=== PATIENT | male | born 1950 | race African-American/Black ===

== ENCOUNTER 2019-01-27 05:10 | Inpatient (IN) | payer OTHER ==
[2019-01-18 13:07] LABS: HEMATOCRIT 41.8 % (42.0-52.0); HEMOGLOBIN 14.2 gm/dL (14.0-18.0); MCH 28.9 pg (26.0-34.0); MCV 85.1 fL (80.0-100.0); RBC 4.91 mil/uL (4.50-6.00); WBC 7.6 thou/uL (4.0-11.0)
[2019-01-18 13:15] LABS: URINE BILIRUBIN NEGATIVE (Negative); URINE BLOOD NEGATIVE (Negative); URINE CLARITY CLEAR; URINE COLOR YELLOW; URINE GLUCOSE-RANDOM* NEGATIVE (Negative); URINE KETONES NEGATIVE (Negative); URINE LEUKOCYTES-REFLEX NEGATIVE (Negative); URINE NITRITE-REFLEX NEGATIVE (Negative); URINE PROTEIN (DIPSTICK) NEGATIVE (Negative); URINE SPECIFIC GRAVITY 1.015 (1.005-1.035); URINE UROBILINOGEN 0.2 E.U./dl (0.2-1.0)
[2019-01-18 13:19] LABS: ALBUMIN 4.1 g/dL (3.4-5.0); CALCIUM 9.3 mg/dL (8.5-10.1); CREATININE 1.4 mg/dL (0.7-1.3); POTASSIUM 4.4 mmol/L (3.5-5.1)
[2019-01-18 13:20] LABS: PROTIME 10.9 Seconds (9.3-11.4)
--- NOTE | 2019-01-19 17:00 | EKG ---
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: [facility] : 1950 Requested By: Luis Loredo Order Number: [id number] MD: Joss Stewart Measurements Intervals [place] Rate: 64 P: 18 TX: 201 QRS: -15 QRSD: 85 T: 21 QT: 391 QTc: 404 Interpretive Statements Sinus rhythm Left ventricular hypertrophy No previous ECG available for comparison Electronically Signed On 01-19-2019 17:00:03 CDT by Joss Stewart [email or web address] ��������������������������������������������� <ELECTRONICALLY SIGNED> ���������������������������������������� By: Joss Stewart MD, MERGED WITH [facility] ��������������������������������������������� 01/19/19 1700 [id number] Joss Stewart MD, FACC /EPI
[~2019-01-27] VITALS: Ht 167.6 cm; Wt 87.1 kg
--- NOTE | ~2019-01-27 | O ---
[facility] [place] [address] OPERATIVE REPORT Name: AQUILINO HOOK Room #: 426-P ADM IN M.R.#: [id number] Admission: 01/27/19 ������������������ Attend Phys: Luis Loredo MD Discharge: ������������������ Date of : 50 Report #: [id number] THIS REPORT FOR: //name// CC: Rahul Loredo DATE OF SERVICE: 01/27/2019 PREOPERATIVE DIAGNOSIS: Right knee osteoarthritis. POSTOPERATIVE DIAGNOSIS: Right knee osteoarthritis. PROCEDURE: Right total knee arthroplasty using Navio robotic assistance. SURGEON: Luis Loredo MD. PHARMACEUTICAL ENGINEER: Elaine Rogers PA-C INDICATION FOR PHARMACEUTICAL ENGINEER: Throughout the case, extensive retraction and manipulation of the knee was required. This was afforded to me by my shipping and receiving assistant. ANESTHESIA: LMA with an adductor canal block. TOURNIQUET TIME: 60 minutes. ESTIMATED BLOOD LOSS: 25 mL. IMPLANTS: [employer] size 6 Legion cobalt chrome posterior stabilized femur, size 5 tibia, size 10 polyethylene and size 32 patella. CONDITION UPON LEAVING THE OPERATING ROOM: Stable. INDICATIONS FOR PROCEDURE: The patient is a 68-year-old gentleman with severe right knee osteoarthritis. He had failed conservative measures for this and after discussion with him, he elected for right total knee arthroplasty. DESCRIPTION OF PROCEDURE: Risks, benefits, alternatives, complications were discussed in detail with the patient including but not limited to risk of anesthesia; risk of damage to nerves, arteries, blood vessels; risk for infection, bleeding; risk for continued knee pain and need for reoperation. Informed consent was obtained from the patient. Right knee was appropriately marked in the preoperative holding area. IV Ancef was given for preoperative antibiotics. Adductor canal block was placed for anesthesia. The patient was brought to the Operating Room and placed in the supine position on the operating room table. LMA anesthesia was induced without complication. Tourniquet was placed on the right thigh. Right lower extremity was prepped and draped in [address] [address] OPERATIVE REPORT Name: AQUILINO HOOK Room #: 426-P [facility] ..#: [id number] Admission: 01/27/19 ������������������ Attend Phys: Luis Loredo MD Discharge: ������������������ Date of : 50 Report #: [id number] normal sterile fashion. Timeout was performed properly identifying the patient and procedure as well as the instrumentation and implants. All in the operating room were in agreement. Right lower extremity was exsanguinated, tourniquet was inflated. Tourniquet time was 60 minutes. Standard midline approach to knee was made with 10 blade through the skin. Dissection was taken down sharply to the fascia and deep flaps were developed medially and laterally. Fresh 10-blade was used to make a medial parapatellar arthrotomy and the knee was inspected. There was severe tricompartmental osteoarthritis. ACL and PCL were removed sharply. Reference pins were then placed. The femur was digitally mapped using the [employer] robotic system. We sized the femur and a size 5 tibia with a size polyethylene. After acceptance of the intraoperative plan, distal femoral cut was made with a Navio bur. The size 6, 4-in-1 cutting block was then placed, anterior, posterior and chamfer cuts were made on the femur. Attention was then turned to the tibia. The remainder of the menisci removed with Bovie cautery. The tibial resection was then performed. Placement of the resection guide was done using the [employer] system. After resection of the tibia, flexion and extension gaps were checked and found to have good balance in flexion and extension both medially and laterally. Tibia was sized, found to be a size 5. A size 5 tibial trial was placed, pinned and punched. A size 6 femoral trial was placed and the box cut was made. This was then trialed with a size 9 and then a size 10 polyethylene, size 10 polyethylene had the best fit through range of motion with good balance medially and laterally, both manually as well as digitally. A 9 mm was taken off the posterior surface of the patella and a size 32 patellar trial button was placed. Knee was taken through range of motion, found to be stable, found to have good patellar tracking. After this, trial components were removed. Bone ends were thoroughly irrigated with normal saline. A final size 5 tibia, size 6 Legion cobalt chrome posterior stabilized femur and a size 32 patella were cemented in place using standard cementation techniques. While the cement cured, a periarticular injection of morphine, ropivacaine, epinephrine and Toradol was placed around the knee joint capsule. After the cement cured, the tourniquet was deflated. Hemostasis was obtained with Bovie cautery. A final size 10 polyethylene was placed. A gram of vancomycin was placed deep in the joint. The fascia was closed with 0 Vicryl, skin was closed with 2-0 Vicryl and Zipline skin closure. A VANESSA dressing was applied. The patient tolerated this procedure well and went to recovery room under care of anesthesia postoperatively. ��������������������������������������������� ���������������������������������������� By: ��������������������������������������������� 1731 1816 Luis Loredo MD /chasidy
[~2019-01-27 05:10] MED LIST: FISH OIL 1,001000 M2 PO; GARLIC1 EACH PO; GINKGO BILOBA60 M1 PO; GLUCOSAMINE &1 EACH PO; LISINOPRIL-HCT1 EAC1 PO; MULTIVITAMINS PO
[2019-01-27 13:30] VITALS: BP 164/92
[2019-01-27 18:08] VITALS: BP 146/85
--- NOTE | 2019-01-27 18:38 | NUR ---
ASSUMED CARE AT 1800, SHIFT ASSESSMENT DONE, MEDS GIVEN, VSS. FLUIDS STARTED, ON REGULAR EIT. DENIES PAIN, NAUSEA, VOMITING. WILL CONTINUE TO ASSESS AND ASSIST WITH ADLs NEEDED.
[2019-01-27 19:54] VITALS: BP 136/88
[2019-01-27 20:00] VITALS: BP 136/88
[2019-01-28 01:33] VITALS: BP 113/68
--- NOTE | 2019-01-28 03:34 | NUR ---
CONTINUE TO DENY PAIN, ABLE TO MOVE/LIFT RIGHT LEG, VANESSA DRESSING CDI, ON ROOM AIR, NO SOB NOTED, SAT AT EDGE OF BED TO USE THE URINAL, VOIDED WITH NO DIFFICULTY, TEDS/SCDS TO BLE, POLAR KUNAL TO RIGHT KNEE, IVF INFUSING, HOURLY ROUNDING, MONITORED.
[2019-01-28 04:37] LABS: HEMATOCRIT 39.6 % (42.0-52.0); HEMOGLOBIN 13.2 gm/dL (14.0-18.0); MCH 28.8 pg (26.0-34.0); MCHC 33.2 g/dL (28.0-37.0); MCV 86.7 fL (80.0-100.0); RBC 4.57 mil/uL (4.50-6.00); RDW 14.1 % (10.5-14.5); WBC 14.5 thou/uL (4.0-11.0)
[2019-01-28 05:54] VITALS: BP 120/66
[2019-01-28 07:53] VITALS: BP 136/76
[2019-01-28] MEDS ORDERED: TRI-BUFFERED A325 M1 PO (10:20)
[2019-01-28] MEDS ORDERED: NEURONTIN 300300 M1 PO (10:20)
--- NOTE | 2019-01-28 11:51 | NUR ---
FAXED REFERRAL TO [facility] FOR A [facility] WALKER SPOKE WITH LAUREN AND SHE WILL LOOK TO SEE IF PT WILL HAVE A CO PAY. DCP TO FOLLOW.
--- NOTE | 2019-01-28 12:22 | NUR ---
ASSESSMENT-PT LIVES AT HOME WITH HIS . PRIOR TO SURGERY PT WAS INDEPENDENT OF ADLS AND AMBULATION. PT HAS AN OLD WALKER BUT WANTS TO CHECK ON WHAT HIS CO-PAY WOULD BE FOR A NEW ONE. ABLE TO ASSIST WITH ANY NEEDS. PT SAYS DRS OFFICE WILL CONTACT HIS OUTPT THERAPY LOCATION AND ARRANGE IF FOR HIM. ASKED DC IDENTITY MANAGEMENT DEVELOPER TO CHECK ON ROLLER WALKER FOR HOME.
[2019-01-28 13:44] VITALS: BP 136/76
== END 2019-01-28 17:01 | disposition home or self-care (01) | DRG 470 ==
LOC: TBA 05:10 → 4E 05:10 → PRE 05:35 → 4E 17:58
PROVIDERS: ADMIT Orthopaedic Surgery
PROC: 0SRC0J9 Replacement of Right Knee Joint with Synthetic Substitute, Cemented, Open Approach (ICD-10-PCS; principal; 2019-01-27)
PROC: 8E0Y0CZ Robotic Assisted Procedure of Lower Extremity, Open Approach (ICD-10-PCS; principal; 2019-01-27)
DX: M17.11 Unilateral primary osteoarthritis, right knee (principal)
CPT/HCPCS: 10783; 50010; 50101; 50415; 50954; 51130; 51225; 51320; 52001; 52282; 53000; 53078; 53364; 54118; 56527; 56528; 57095; 57103; 57110; 57127; 62110; 62900; 64039; 70005